=== PATIENT | female | born 1995 | race Caucasian/White ===

== ENCOUNTER 2022-06-30 14:03 | Outpatient (RCR) | payer BC, SELFPAY ==
[2022-06-30 16:24] VITALS: BP 121/84; PULSE 108
== END 2022-08-28 12:45 | disposition home or self-care (01) ==
LOC: ANHOBOP 14:03
PROVIDERS: PCP Advanced Practice Midwife; Visit Provider Obstetrics & Gynecology
DX: O36.8130 Decreased fetal movements, third trimester, not applicable or unspecified (principal); Z3A.35 35 weeks gestation of pregnancy
CPT/HCPCS: 59025

== ENCOUNTER 2022-07-25 00:01 | Inpatient (IN) | payer BC, SELFPAY ==
[2022-07-25] VITALS (102 sets, daily range): BP systolic 83–144; BP diastolic 37–101; PULSE 65–119; RESP 16–18; TEMP 36.1–36.8; O2SAT 95–100; BMI 30.4
--- NOTE | 2022-07-25 00:37 | LDADM ---
This patient, Joni Saleh, was admitted to Labor/Delivery/Recovery 103 on 07/25/22 at 00:01. Plans for labor, pain management and were discussed with patient. Patient/family oriented to hospital policies and general routines including ID bracelet, bed and alarms, visiting hours, pain management, procedures, bathroom and other care routines, personal items, smoking policy, room service/diet and guest tray routines, security routines, and visiting hours. Patient/Family are encouraged to report perceived risks to care and to ask questions if they do not understand what they are told or what they should do. See OBIX for further documentation.
[2022-07-25 00:50] LABS: Basophils Absolute Auto 0.1 K/mm3 (0.0-0.1); Basophils Percent Auto 0.4 % (0.2-1.2); Eosinophils Absolute Auto 0.1 K/mm3 (0-0.3); Eosinophils Percent Auto 0.6 % (0-4.4); Hemoglobin 10.5 g/dL (12.0-15.0); Immature Granulocyte Absolute 0.15 K/mm3 (0.00-0.031); Immature Granulocyte Percent A 1.2 % (0-0.5); Lymphocytes Absolute Auto 2.14 K/mm3 (0.9-3.2); Lymphocytes Percent Auto 17.1 % (18.3-44.2); Mean Corpuscular HGB Conc 30.9 g/dl (32-36); Mean Corpuscular Hemoglobin 25.3 pg (26-34); Mean Corpuscular Volume 81.9 fl (80-100); Mean Platelet Volume 10.7 fl (7.4-10.4); Monocytes Absolute Auto 0.8 K/mm3 (0.1-0.6); Monocytes Percent Auto 6.2 % (2.6-8.5); Neutrophils Absolute Auto 9.3 K/mm3 (1.3-6.7); Neutrophils Percent Auto 74.5 % (45.5-73.1); Platelet Count Result 185 k/mm3 (150-375); Red Blood Count 4.15 M/mm3 (4.2-5.4); Red Cell Distribution Width 14.7 % (11.5-14.5); White Blood Count 12.5 K/mm3 (4.5-10.0)
[2022-07-25] MEDS: LACTATED RINGERS 1,000 ML 125 ML IV CONT ×3 (00:58→08:46)
[2022-07-25] MEDS: OXYTOCIN 30 UNITS/NS 500 ML 30 UNITS/500 ML BAG IV CONT (00:58)
--- NOTE | 2022-07-25 09:08 | WPDANESEPPF ---
Anes - Initial Pre Proc Eval Procedure: labor epidural Date/Time: 07/25/22 09:08 Surgeon: Melissa Foote CNM Pre Op Diagnosis: labor pain Pre Op Diagnosis: IOL Patient Data Age: 27 Gender: F Height: 1.7 m Weight: 88 kg Last Vital Signs Temp 36.1 C L 07/25/22 08:31 Pulse 96 07/25/22 09:00 Resp 16 07/25/22 00:22 BP 110/69 07/25/22 09:00 Pulse Ox 99 07/25/22 09:04 Allergies Allergy/AdvReac Type Severity Reaction Status Date / Time No Known Allergies Allergy Verified 07/25/22 00:57 Laboratory Tests 07/25/22 07/25/22 07/25/22 00:34 00:34 00:34 WBC 12.5 K/mm3 H K/mm3 (4.5-10.0) RBC 4.15 M/mm3 L M/mm3 (4.2-5.4) Hgb 10.5 g/dL L g/dL (12.0-15.0) Hct 34.0 % L % (37.0-47.0) MCV 81.9 fl fl (80-100) MCH 25.3 pg L pg (26-34) MCHC 30.9 g/dl L g/dl (32-36) RDW 14.7 % H % (11.5-14.5) Plt Count 185 k/mm3 k/mm3 (150-375) MPV 10.7 fl H fl (7.4-10.4) Immature Gran % (Auto) 1.2 % H % (0-0.5) Neut % (Auto) 74.5 % H % (45.5-73.1) Lymph % (Auto) 17.1 % L % (18.3-44.2) [place] % (Auto) 6.2 % % (2.6-8.5) Eos % (Auto) 0.6 % % (0-4.4) Baso % (Auto) 0.4 % % (0.2-1.2) Lymph # (Auto) 2.14 K/mm3 K/mm3 (0.9-3.2) [place] # (Auto) 0.8 K/mm3 H K/mm3 (0.1-0.6) Eos # (Auto) 0.1 K/mm3 K/mm3 (0-0.3) Baso # (Auto) 0.1 K/mm3 K/mm3 (0.0-0.1) Abs Immat Gran (auto) 0.15 K/mm3 H K/mm3 (0.00-0.031) Absolute Neuts (auto) 9.3 K/mm3 H K/mm3 (1.3-6.7) Absolute Nucleated RBC 0.0 K/mm3 K/mm3 (0.0-0.012) Nucleated RBC % 0.0 % % (0.0-0.2) RPR Pending Blood Type A Positive Antibody Screen Negative Patient hx anesthesia problems: none Family hx anesthesia problems: none Results Review: All pre-operative results and documents have been reviewed as part of the pre-operative evaluation. [facility] Social History Social History Smoking status: Never smoker Substance use: never Lack of Transportation: No Lack of Food: Never True Current Housing: I Have Housing Concerned About Future Housing: No Difficulty Paying Gas/Electric Bills: No Difficulty Paying for Meds: No Currently Unemployed: No Education: Associate Degree Difficulty w/ Childcare or Family Care: No Spiritual care concerns: No Anes - Eval Final PreProcedure Day of Procedure 07/25/22 09:08 Heart: regular rate and rhythm Lungs: clear to auscultation and normal air movement Airway: Mallampati scale class II Neurological: alert and oriented Results Review: All pre-operative results and documents have been reviewed as part of the pre-operative evaluation. Informed Consent: The patient's anesthetic plan and its attendant risks and benefits were discussed with the patient/family/POA. Questions were solicited and answers provided to the satisfaction of the patient/family/POA.
--- NOTE | 2022-07-25 12:16 | WPDOBADMIT ---
Obstetrics - Admit Note Admission Note: Admit for elective medical induction of labor. record reviewed. No pertinent additions to the history and/or any subsequent changes in the physical findings that are not consistent with the expected course of the were found. Additions to the history and/or subsequent changes in the physical findings follow. None.
--- NOTE | 2022-07-25 12:17 | P.PCNOB_ITS ---
OB - Delivery Note Procedure Delivery date: 07/25/22 Procedure: Induction method: AROM and Per Pitocin Protocol Delivery monitor: External FHT and External Uterine Route of delivery: Episiotomy description: None Laceration Description: None Quantitative Blood Loss (ml): 259 Anesthesia type: Epidural Narrative: Mother and baby in stable condition. Cord gasses collected and handed off to staff. [place] Baby Date of : 07/25/22 Time of : 11:58 Weeks of gestation at delivery: 39 Infant gender: Male Weight (pounds): 9 Weight (ounces): 4 presentation: vertex position: Right Occiput Anterior Placenta delivery description: Spontaneous Cord Vessel Description: 3 Vessels, Nuchal Cord (x2), Loose and Reduced score one minute: 8 score five minutes: 9
--- NOTE | 2022-07-25 12:17 | PM.IMHP ---
H&P: HPI History of Present Illness Date/Time: 07/25/22 12:17 Chief Complaint: Induction of labor Review of Systems Review of Systems: All systems reviewed & are unremarkable except as noted in HPI and below Constitutional: Constitutional: Reports as per HPI and Reports no additional constitutional complaints Eyes: Eyes: Reports as per HPI ENT: Reports system reviewed and no additional complaints, except as documented Cardiovascular: Cardiovascular: Reports as per HPI Respiratory: Respiratory: Reports as per HPI Gastrointestinal: Gastrointestinal: Reports as per HPI Genitourinary: Genitourinary: Reports no additional female genitourinary complaints Musculoskeletal: Musculoskeletal: Reports no additional musculoskeletal complaints Integumentary/Breasts: Skin/Breast: Reports system reviewed and no additional complaints, except as docu Neurologic: Reports system reviewed and no additional complaints, except as documented Psychiatric: Psychiatric: Reports no additional psychiatric complaints Endocrine: Endocrine: Reports no additional endocrine complaints Hematologic/Lymphatic: Hematologic/Lymphatic: Reports no additional hematologic/lymphatic complaints Allergic/Immunologic: Allergic/Immunologic: Reports no additional allergic/immunologic complaints [facility] Social History Social History Smoking status: Never smoker Substance use: never Lack of Transportation: No Lack of Food: Never True Current Housing: I Have Housing Concerned About Future Housing: No Difficulty Paying Gas/Electric Bills: No Difficulty Paying for Meds: No Currently Unemployed: No Education: Associate Degree Difficulty w/ Childcare or Family Care: No Spiritual care concerns: No Meds Home Medications and Allergies Allergies Allergy/AdvReac Type Severity Reaction Status Date / Time No Known Allergies Allergy Verified 07/25/22 00:57 Vital Signs Vital Signs - 24 hr 07/25/22 00:22 07/25/22 01:00 07/25/22 01:15 Temperature 97.6 F Pulse Rate 100 87 97 Respiratory Rate 16 Blood Pressure 128/83 123/71 106/68 Pulse Oximetry 07/25/22 01:30 07/25/22 01:45 07/25/22 02:00 Temperature Pulse Rate 92 92 96 Respiratory Rate Blood Pressure 114/75 104/58 L 105/57 L Pulse Oximetry 07/25/22 06:00 07/25/22 06:30 07/25/22 06:05 Temperature 97.1 F L Pulse Rate 98 88 Respiratory Rate Blood Pressure 104/56 L 123/74 Pulse Oximetry 07/25/22 06:45 07/25/22 07:00 07/25/22 07:15 Temperature Pulse Rate 85 97 93 Respiratory Rate Blood Pressure 130/76 123/81 125/75 Pulse Oximetry 07/25/22 07:41 07/25/22 07:44 07/25/22 07:45 Temperature Pulse Rate 88 101 H Respiratory Rate Blood Pressure 125/69 121/67 Pulse Oximetry 98 07/25/22 07:46 07/25/22 07:49 07/25/22 07:51 Temperature Pulse Rate 99 87 Respiratory Rate Blood Pressure 129/81 122/64 Pulse Oximetry 98 07/25/22 07:52 07/25/22 07:54 07/25/22 07:56 Temperature Pulse Rate 96 99 Respiratory Rate Blood Pressure 133/86 120/99 H Pulse Oximetry 97 07/25/22 07:58 07/25/22 07:59 07/25/22 08:00 Temperature Pulse Rate 65 79 Respiratory Rate Blood Pressure 83/38 L 95/47 L Pulse Oximetry 97 07/25/22 08:01 07/25/22 08:02 07/25/22 08:04 Temperature Pulse Rate 76 85 Respiratory Rate Blood Pressure 87/37 L 102/41 L Pulse Oximetry 97 07/25/22 08:05 07/25/22 08:07 07/25/22 08:09 Temperature Pulse Rate 88 91 Respiratory Rate Blood Pressure 110/57 L 111/63 Pulse Oximetry 98 07/25/22 08:10 07/25/22 08:13 07/25/22 08:14 Temperature Pulse Rate 97 86 Respiratory Rate Blood Pressure 109/52 L 108/68 Pulse Oximetry 97 07/25/22 08:15 07/25/22 08:17 07/25/22 08:19 Temperature Pulse Rate 95 85 Respiratory Rate Blood Pressure 105/92 H 110/62 Pulse Oximetry 98 07/25/22 08:20 07/25/22 08:23 07/25/22 08:
[2022-07-25] MEDS: OXYTOCIN 30 UNITS/NS 500 ML 30 UNITS/500 ML BAG 125 UNITS IV CONT (12:37)
[2022-07-25] MEDS: WITCH HAZEL 40 PADS 1 PAD TOPICAL (14:22)
--- NOTE | 2022-07-25 15:48 | OBPPTRN ---
1504 Patient transferred to post room #288 via W/C. Support person present. Oriented to unit, room, information board, rooming in, admission packet and security measures. Patient verbalizes understanding.
[2022-07-25] MEDS: IBUPROFEN 600 MG TABLET PO (22:00)
[2022-07-26] VITALS: BP 112/63; PULSE 85; RESP 18; TEMP 37.5; O2SAT 98
[2022-07-26 04:00] VITALS: BP 111/73; PULSE 92; RESP 18; TEMP 36.6; O2SAT 99
[2022-07-26 05:31] LABS: Hematocrit 29.9 % (37.0-47.0); Hemoglobin 9.3 g/dL (12.0-15.0)
--- NOTE | 2022-07-26 08:01 | WPDANLDPN2 ---
Anes-Prog Note L&D Date/Time: 07/26/22 08:01 Comfortable throughout: labor Neuraxial method: epidural Epidural/Spinal procedure site: clean & non-tender Neuro status: Neuro function grossly intact. Cardiovascular status: normal Respiratory status: normal Airway patency: baseline Mental status: baseline Vital Signs: Last Vital Signs Temp 36.6 C 07/26/22 04:00 Pulse 92 07/26/22 04:00 Resp 18 07/26/22 04:00 BP 111/73 07/26/22 04:00 Pulse Ox 99 07/26/22 04:00 O2 Del Method Room Air 07/25/22 15:20 Pain score (VAS): <3 I/O: Intake & Output 07/25/22 07/26/22 07/26/22 23:59 07:59 15:59 Intake Total 240 Balance 240 Patient feedback: Patient satisfied with anesthetic care.
[2022-07-26] MEDS: IBUPROFEN 600 MG TABLET PO ×2 (08:18→14:19)
[2022-07-26] MEDS: MULTIVIT/MIN/PREN/FOL AC/IRON TABLET 1 TAB PO (08:18)
[2022-07-26] MEDS: LANOLIN (LANSINOH) 7.5 GM CREAM 1 APPLIC TOPICAL (08:19)
[2022-07-26] MEDS: POLYSACCHARIDE IRON COMPLEX 150 MG CAPSULE PO ×2 (08:19→17:18)
[2022-07-26] MEDS: DOCUSATE SODIUM 100 MG CAPSULE PO ×2 (08:19→17:19)
[2022-07-26] MEDS: BENZOCAINE 20% AER SPR (*SP) 56 GM CAN 1 SPRAY TOPICAL (08:20)
[2022-07-26] MEDS: WITCH HAZEL 40 PADS 1 PAD TOPICAL (08:20)
--- NOTE | 2022-07-26 09:03 | PM.OBPNVD ---
OB - PN: Subj Subjective Date/time seen: 07/26/22 09:03 Patient comments: no complaints baby status: doing well OB - PN: Obj Data Labs 07/26/22 05:21 Labs: Laboratory Results - last 24 hr 07/26/22 05:21 Hgb 9.3 L Hct 29.9 L OB - PN A/P Plan day: 1 Plan: routine care Time Spent With Patient Time: Total time spent is greater than 50% in coordination of care (as documented) at patient's floor/unit and/or counseling patient: Time with patient: less than 15 minutes Review of Systems Review of Systems: All systems reviewed & are unremarkable except as noted in HPI and below Exam Narrative: Fundus firm and vaginal flow controlled. No lower ext redness, warmth, or edema. Negative homans. Const: General: comfortable Chest: Breast/axilla inspection: normal inspection of the breasts Resp: Effort & Inspection: normal respiratory effort Cardio: Rate: regular rate GI: GI Palp: Yes Soft to palpation Psych: Appearance: grossly normal Affect: normal affect Attitude: cooperative Thought content: Yes Normal thought content present Judgement: Good judgement present (Psych)
[2022-07-26 10:20] VITALS: BP 134/77; PULSE 95; RESP 16; TEMP 36.9; O2SAT 96
[2022-07-26] MEDS: ACETAMINOPHEN 325 MG TABLET 650 MG PO (12:16)
[2022-07-26 14:30] VITALS: BP 122/77; PULSE 90; RESP 18; TEMP 37; O2SAT 99
[2022-07-26 19:58] VITALS: BP 122/83; PULSE 87; RESP 18; TEMP 36.4; O2SAT 97
[2022-07-26] MEDS: SERTRALINE HCL 50 MG TABLET PO (20:52)
--- NOTE | 2022-07-27 06:28 | PM.OBDSVD ---
DS: Admitting Diagnosis Discharge Date 07/27/22 Admitting Diagnosis term OB - DS: Summary OB Procedures : None OB Procedures Intrapartum: Spontaneous Vag Delivery OB Procedures: : None Time Spent with Patient Time attestation: Total time spent providing and/or coordinating discharge services: Discharge Plan Discharge Discharging Clinician: Mary Wick Patient Disposition: Home, Self-Care Activity: pelvic rest Diet: regular Patient Instructions: Antibiotic Form Stand Alone Forms: General Discharge Information Follow-up/Referrals: Mary Wick MD [Physician] - Date of admission: 07/25/22 00:01 Primary Care Provider: UNKNOWN,DOCTOR Admitting Provider: Mary Wick Attending physician on admission: Mary Wick Condition: Stable
--- NOTE | 2022-07-27 06:32 | PM.OBPNVD ---
OB - PN: Subj Subjective Date/time seen: 07/27/22 06:32 Patient comments: no complaints, pain well controlled and tolerating diet OB - PN: Obj Data Labs 07/26/22 05:21 OB - PN A/P Plan day: 2 Plan: routine care and discharge home Time Spent With Patient Time: Total time spent is greater than 50% in coordination of care (as documented) at patient's floor/unit and/or counseling patient: Exam Const: General: comfortable and no acute distress Resp: Effort & Inspection: normal respiratory effort Auscultation: no rales, no rhonchi and no wheezes Cardio: Rate: regular rate Heart sounds: no click, no murmurs and no rubs GI: GI Palp: Yes Soft to palpation and No Tenderness to palpation present (GI) Auscultation: normal bowel sounds Extrem: General: normal to inspection, no pedal edema and no calf tenderness
[2022-07-27 08:05] LABS: Rapid Plasma Reagin Non-Reactive (NonReactive)
[2022-07-27 08:20] VITALS: BP 119/70; PULSE 92; RESP 18; TEMP 36.6; O2SAT 99
[2022-07-27] MEDS: POLYSACCHARIDE IRON COMPLEX 150 MG CAPSULE PO ×2 (10:43→15:53)
[2022-07-27] MEDS: MULTIVIT/MIN/PREN/FOL AC/IRON TABLET 1 TAB PO (10:43)
[2022-07-27] MEDS: IBUPROFEN 600 MG TABLET PO ×2 (10:45→18:39)
[2022-07-27] MEDS: DOCUSATE SODIUM 100 MG CAPSULE PO (15:53)
[2022-07-27] MEDS: SERTRALINE HCL 50 MG TABLET PO (21:10)
[2022-07-27 21:15] VITALS: BP 124/80; PULSE 90; RESP 18; TEMP 36.6; O2SAT 99
[2022-07-28] MEDS: IBUPROFEN 600 MG TABLET PO (07:38)
[2022-07-28] MEDS: MULTIVIT/MIN/PREN/FOL AC/IRON TABLET 1 TAB PO (07:39)
[2022-07-28] MEDS: POLYSACCHARIDE IRON COMPLEX 150 MG CAPSULE PO (07:39)
[2022-07-28] MEDS: DOCUSATE SODIUM 100 MG CAPSULE PO (07:39)
--- NOTE | 2022-07-28 07:53 | PM.OBPNVD ---
OB - PN: Subj Subjective Date/time seen: 07/28/22 07:53 Patient comments: no complaints baby status: doing well OB - PN: Obj Data Labs 07/26/22 05:21 Labs: Laboratory Results - last 24 hr 07/25/22 00:34 RPR Non-reactive OB - PN A/P Plan day: 2 Plan: routine care and discharge home (F/U in 4 weeks) Comments: PT WAS SUPPOSED TO BE DISCHARGED LAST NIGHT BUT WAS NOT. Time Spent With Patient Time: Total time spent is greater than 50% in coordination of care (as documented) at patient's floor/unit and/or counseling patient: Time with patient: less than 15 minutes Review of Systems Review of Systems: All systems reviewed & are unremarkable except as noted in HPI and below Exam Narrative: Fundus firm and vaginal flow controlled. No lower ext redness, warmth, or edema. Negative homans. Const: General: comfortable Chest: Breast/axilla inspection: normal inspection of the breasts Resp: Effort & Inspection: normal respiratory effort Cardio: Rate: regular rate GI: GI Palp: Yes Soft to palpation Psych: Appearance: grossly normal Affect: normal affect Attitude: cooperative Thought content: Yes Normal thought content present Judgement: Good judgement present (Psych)
[2022-07-28 08:35] VITALS: BP 125/86; PULSE 84; RESP 18; TEMP 37.1; O2SAT 99
--- NOTE | 2022-07-28 13:20 | PC.NURSE ---
[id number] Introductions were made, then consulted with patient to assess needs related to . Mother led the conversation with her experience feeding her so far. Mother works well with her . Encouraged understanding of the benefits of skin to skin (unwrapping and placing vertically on her chest), stimulating to wake to breastfeed, changing positioning, how to watch for early feeding signs, responsive feeding, frequency of feeding on demand aiming for 8-12 times in 24 hours (every 2-3 hours), milk production, duration of feeding, signs of adequate intake/output and how to record on the feeding sheet. Reviewed positioning and ear, shoulder, hip alignment, supporting the breast, asymmetrical latch (off-center), and leading with the chin with a big open side gape. Infant latched optimally to the right breast in cross cradle position. Education given to mother of how to visualize suck/swallow ratios and drinking at the breast. was able to maintain latch without discomfort to mother for a few minutes, then would fall off . Discussed with the parents that it is possible that the tongue which does forking with extension and appears heart shaped might be restricting. Encouraged parents to discuss with their ICP. Mother states she has been pumping, supplementing with formula bottles and using a pacifier. There was a discussion about the risks and benefits of each decision. Mother states when her slides off the breast she works with her to latch again. Nipple care reviewed with optimal latch and good positioning. Reminding mother of comfort measures of healing with a warm and wet washcloth to rinse breast, then leave open to air-dry as needed. Reviewed good handwashing when or touching the breast/nipples to prevent infection. Resources used to facilitate learning were used with the tool, mom and baby guide. Mother voiced understanding of responsive feedings, stimulating with skin to skin, hand expressed colostrum, massage touch, talking to to encourage if it has been 2 -3 hours since the start of the last , to call if infant does not latch or there is discomfort with . Reported to the primary RN.
--- NOTE | 2022-07-28 17:23 | PC.NURSE ---
[id number] Patient was given the opportunity to view the discharge video Mother & Baby Care, The First Two Weeks and to ask questions. Patient declined viewing the video and has been given the mother/baby guide for home reference. States she will view this at home.
[2022-07-29 08:46] VITALS: BP 120/77; PULSE 97; RESP 20; TEMP 37.4; O2SAT 100
--- NOTE | 2022-08-27 08:18 | PM.OBDSVD ---
DS: Admitting Diagnosis Discharge Date 07/28/22 Admitting Diagnosis Induction of labor OB - DS: Summary OB Procedures : None OB Procedures Intrapartum: Spontaneous Vag Delivery OB Procedures: : None Peripartum Data Delivery Method: Natural Vaginal Laceration Description: None complications: none Status at Discharge Functional status at discharge: independent ambulation Time Spent with Patient Time attestation: Total time spent providing and/or coordinating discharge services: Exam Narrative: Fundus firm and vaginal flow controlled. No lower ext redness, warmth, or edema. Negative homans. Denies h/a, v/d or e/p. Reflexes normal. Const: General: comfortable Chest: Breast/axilla inspection: normal inspection of the breasts Resp: Effort & Inspection: normal respiratory effort Cardio: Rate: regular rate GI: GI Palp: Yes Soft to palpation Psych: Appearance: grossly normal Affect: normal affect Attitude: cooperative Thought content: Yes Normal thought content present Judgement: Good judgement present (Psych) Discharge Plan Discharge Consulting providers: Kristi Perea ; Herb Lomax ; Jana Das Discharging Clinician: Mary Wick Patient Disposition: Home, Self-Care Activity: pelvic rest Diet: regular Discharge Instructions: Education: Mom and Baby Guide Given to: Mother Follow-Up: Call your delivering provider's office for an appointment to be seen in: 6 weeks Mom and baby should come to the [facility] for the follow-up appointment. Appointment Date/Time: 07/29/2022 at 9:00 am What to expect at your follow-up visit: Physical Assessment Call [phone] if you are unable to keep your appointment time. BREAST CARE: * Wear a snug supportive bra. * For engorgement discomfort: Breast Feeding: * Apply warm moist washcloths * Express milk as needed to relieve engorgement * Wear loose clothing * For sore nipples: * Identify correct latch-on * Apply warm moist washcloths before and after nursing * Air dry nipples after nursing * May apply Lansinoh cream to nipples PERINEAL CARE: * Until bleeding stops, use your ulises bottle after urinating * Change your pad frequently throughout the day * You may take sitz baths several times a day (fill your bathtub with warm water and soak for 20 minutes.) Do NOT bathe in the water * No tub baths until seen by your physician - You may shower ACTIVITY: * Rest as much as possible. * Do not exercise or lift anything heavier than your baby (such as laundry or other children.) * Avoid stairs or driving as much as possible. * Do not put anything into the vagina. No douching, tampons, or sexual activity until seen by physician. NOTIFY PHYSICIAN IF YOU HAVE ANY QUESTIONS OR IF ANY OF THE FOLLOWING SYMPTOMS OCCUR: * If your episiotomy or incision becomes red, swollen, or more painful than what you have experienced in the hospital. * If your vaginal bleeding becomes foul smelling. * If your vaginal bleeding becomes more heavy than a period or if your bleeding changes from pink to bright red. However, you may pass an occasional walnut-sized clot once or twice for the first week . * If you experience a sharp, shooting pain in you calves. * If you discover a hard, reddened area on your breast or if you experience flu-like symptoms. DIET: * Eat regular, well-balanced meals. * Drink plenty of fluids daily. If , drink to thirst. Follow-up/Referrals: Mary Wick MD [Physician] - Date of admission: 07/25/22 00:01 Primary Care Provider: UNKNOWN,DOCTOR Admitting Provider: Mary Wick Attending physician on admission: Mary Wick Condition: Stable
== END 2022-07-28 13:35 | disposition home or self-care (01) | DRG 807 ==
LOC: ANHLDR 10:19 → ANHOB2 15:33
PROVIDERS: Advanced Practice Midwife; Admitting Provider Obstetrics & Gynecology; Visit Provider Obstetrics & Gynecology
DX: O69.81X0 Labor and delivery complicated by cord around neck, without compression, not applicable or unspecified (principal); Z37.0 Single live birth; Z3A.39 39 weeks gestation of pregnancy
CPT/HCPCS: 36415; 85014; 85018; 85025; 86592; 86850; 86900; 86901; A9270; J2590; J2795; J7120

== ENCOUNTER 2024-12-05 08:08 | Inpatient (IN) | payer BC, SELFPAY ==
[2024-12-05] VITALS (36 sets, daily range): BP systolic 99–130; BP diastolic 55–99; PULSE 71–114; RESP 16; TEMP 36.2–37.2; O2SAT 94–100; BMI 31.4
--- OUTSIDE RECORDS SUMMARY | 2024-12-05 08:15 | XMS_ITS | Clinical Summary ---
Author Organization [facility] Address [address] [place] [address] Care Team Providers Care Deicer Tester Name Role Phone Marielos Meadecornelia SEGURA Primary Care Provider [phone] Allergies No known active allergies Medications PNV 16-iron fum,[id number] 35-1-200 mg capsule Take by mouth daily. Active NuvaRing 0.12-0.015 mg/24 hr vaginal ring 10/09/19 20 Active ofloxacin (OCUFLOX) 0.3 % ophthalmic solutionIndication s:Acute bacterial conjunctivitis of right eye Days 1-2 instill 2 drops to affected eye every 2-4 hours, then days 3-7 instill 1 drop to affected eye four times a day. 10 mL 03/25/20 23 Active Additional Information Patient not taking.Reported on 09/03/2024 sertraline (ZOLOFT) 100 mg tablet Take 1 tablet (100 mg total) by mouth daily 08/29/19 25 Active Active Problems Problem Noted Date Diagnosed Date Healthcare maintenance 01/29/2017 Immunizations Immunization Administration Dates Next Due PPD TEST 03/13/2023 Family History Medical History Relation Name Comments Hypertension Father Diabetes Sister Relation Name Status Comments Father Sister Social History Tobacco Use Types Packs/Day Years Used Date Smoking Tobacco: Never Tobacco Cessation:Counseling Given: No Alcohol Use Standard Drinks/Week Comments No 0 (1 standard drink = 0.6 oz pur e alcohol) Comments No Sex and Gender Information Value Date Recorded Sex Assigned at Not on file Legal Sex Female 8:39 AM CDT Gender Identity Female 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/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 Sexual Orientation Not on file Obstetrics History Last Filed Vital Signs Vital Sign Reading Time Taken Comments Blood Pressure 128/70 09/03/2024 4:11 PM BANK WORKER Pulse 98 09/03/2024 4:11 PM BANK WORKER Temperature 36.8 C (98.2 F) 09/03/2024 4:11 PM BANK WORKER Respiratory Rate 18 09/03/2024 4:11 PM BANK WORKER Oxygen Saturation 99% 09/03/2024 4:11 PM BANK WORKER Inhaled Oxygen Concentration - - Weight 86.2 kg (190 lb) 09/03/2024 4:11 PM BANK WORKER Height 170.2 cm (5' 7 ) 09/03/2024 4:11 PM BANK WORKER Body Mass Index 29.76 09/03/2024 4:11 PM BANK WORKER Plan of Treatment Health Maintenance Due Date Last Done Comments Cervical Cancer Screening 1995 Depression Screening 1995 Hepatitis C Screening 1995 Regular Well Visit/Exam 18-64 01/29/2018 01/29/2017 Influenza Vaccine (#1) 2024 10/11/2019 DTaP/Tdap/Td Vaccine (6 - Td or Tdap) 03/13/2025 03/13/2015, 02/19/2001, 08/26/1996, Additional history exists Hepatitis B Screening Completed 1995 , 1995, 1995 Varicella Vaccines Completed 03/16/2016, 08/26/1996 HPV Vaccines Aged Out No longer eligi ble based on patient's age to complete this topic Pneumococcal vaccine <65 Aged Out No longer eligible based on patient's age to complete this topic Insurance [employer] OOS Care Teams Deicer Tester Relationship Specialty Start Date End Date Marielos Meade NP PCP - General Nurse Practitioner 03/13/23
--- OUTSIDE RECORDS SUMMARY | 2024-12-05 08:15 | XMS_ITS | Referral Summary ---
[facility] Organization [facility] Address [address] [place] [address] Care Team Providers Care Boatswains Mate Name Role Phone Rajan Meaderamakrishna Ramires NP Primary Care Provider [phone] Allergies No known active allergies Medications PNV 16-iron fum,[id number] 35-1-200 mg capsule Take by mouth daily. 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 Sexual Orientation Not on file Last Filed Vital Signs Vital Sign Reading Time Taken Comments Blood Pressure 128/70 09/03/2024 4:11 PM PIG MACHINE OPERATOR Pulse 98 09/03/2024 4:11 PM PIG MACHINE OPERATOR Temperature 36.8 C (98.2 F) 09/03/2024 4:11 PM PIG MACHINE OPERATOR Respiratory Rate 18 09/03/2024 4:11 PM PIG MACHINE OPERATOR Oxygen Saturation 99% 09/03/2024 4:11 PM PIG MACHINE OPERATOR Inhaled Oxygen Concentration - - Weight 86.2 kg (190 lb) 09/03/2024 4:11 PM PIG MACHINE OPERATOR Height 170.2 cm (5' 7 ) 09/03/2024 4:11 PM PIG MACHINE OPERATOR Body Mass Index 29.76 09/03/2024 4:11 PM PIG MACHINE OPERATOR Plan of Treatment Not on file Insurance [employer] O[employer] Care Teams Boatswains Mate Relationship Specialty Start Date End Date Marielos Meade NP PCP - General Nurse Practitioner 03/13/23
--- OUTSIDE RECORDS SUMMARY | 2024-12-05 08:15 | XMS_ITS | Encounter Summary ---
Author Organization [facility] Address [address] [place] [address] Care Team Providers Care Truck Driver Instructor Name Role Phone Unavailable Primary Care Provider Unavailabl e Encounter Details Date Type Department Care Team (Late st Contact Info) Description 11/16/2023 Lab Requisition [facility] - DermPath Lab [address] [place] [address] Andrzej De Anda MD [facility] [id number] Social History Tobacco Use Types Packs/Day Years Used Date Smoking Tobacco: Never Assessed Comments Unknown Sex and Gender Information Value Date Recorded Sex Assigned at Not on file Legal Sex Female 9:45 AM CDT Gender Identity Not on file Sexual Orientation Not on file documented as of this encounter Plan of Treatment Not on file documented as of this encounter Procedures Procedure Name Priority Date/Time Associated Diagnosis Comments DERMATOPATHOLOGY Routine 11/11/2023 3:33 AM CDT documented in this encounter Results * DERMATOPATHOLOGY (11/11/2023 3:33 AM CDT) Case Report Dermatopathology Report Case: [id number] Authorizing Provider: Andrzej De Anda MD Collected: 11/11/2023 03:33 AM Ordering Location: [facility] - Received: 11/16/2023 09:56 AM DermPath Lab Pathologist: Nancy Platt MD Specimen: Skin, left medial chest 1:32 PM CDT DERMATOPATHOLOGY LABORATORY Final Diagnosis Specimen A. SKIN, left medial chest: COMPOUND MELANOCYTIC NEVUS, IRRITATED (D22.5) NOT PRESENT AT SAMPLED MARGIN 1:32 PM CDT DERMATOPATHOLOGY LABORATORY Clinical History R/o Atypical Nevus r/o Melanoma. Check margins. 1:32 PM CDT DERMATOPATHOLOGY LABORATORY Gross Description Specimen A: Received is one formalin filled container labeled with the patient's name and designated left medial chest. The specimen consists of a shave biopsy measuring 6x8x1 mm. Jar 0. 1:32 PM T DERMATOPATHOLOGY LABORATORY Microscopic Description Specimen A. SKIN, left medial chest: There is melanin pigment in the stratum corneum. There are nests of melanocytes at the dermal-epidermal junction and within the dermis. This lesion is not present at the sampled margin of the specimen. 1:32 PM T DERMATOPATHOLOGY LABORATORY Disclaimer An external and internal positive and negative controls are appropriate for the histochemical, immunohistochemical and immunofluorescence stain(s) in this case (if any), except where stated explicitly. The performance characteristics of the stain(s) cited in this report were developed and its performance characteristic determined by the Dermatopathology Laboratory at [facility], directed by Dr. Chinmay [facility]. These tests need not be, and therefore are not, approved by the [place] Food and Drug Administration. The tests are used for clinical purposes. Billing Codes Specimen Charges Stain Charges 42238 1 1:32 PM CDT DERMATOPATHOLOGY LABORATORY Embedded Images 1:32 PM CDT DERMATOPATHOLOGY LABORATORY Pathology/Cytolo gy TISSUE SPECIMEN FROM SKIN / Unknown 11/11/2023 3:33 AM CDT 11/16/2023 9:56 AM CDT us Andrzej De Anda MD LAB - PATHOLOGY/CYTOLOGY ORDERAB LES Final Result DERMATOPATHOLOGY LABORATORY [facility] - Department of Dermatology [address] [place] [address], [facility] [phone] documented in this encounter Visit Diagnoses Not on filedocumented in this encounter
--- OUTSIDE RECORDS SUMMARY | 2024-12-05 08:15 | XMS_ITS | Clinical Summary ---
Author Organization [facility] Address [address] [place] [address] Care Team Providers Care Packaging Materials Inspector Name Role Phone Unavailable Primary Care Provider Unavailabl e Source Comments [facility],non-owned Affiliates and Associated Physician Practices is amultiple site organization consisting of ambulatory clinics and hospital sitesin [place], [place], [place] and [place]. This disclosure is being madepursuant to the Care Everywhere program and may not contain all information available regarding this patient. Last updated 18.[facility] Social History Tobacco Use Types Packs/Day Years Used Date Smoking Tobacco: Never Assessed Comments Unknown Sex and Gender Information Value Date Recorded Sex Assigned at Not on file Legal Sex Female 9:45 AM CDT Gender Identity Not on file Sexual Orientation Not on file Plan of Treatment Health Maintenance Due Date Last Done Comments PAP SMEAR 1995 HIV SCREENING 2010 HEPATITIS C SCREENING 04/23/2013 DTAP/TDAP/TD VACCINES (1 - Tdap) 2014 HEPATITIS B VACCINE (1 of 3 - 19+ 3-dose series) 2014 COVID-19 VACCINE (1 - 2023-2 5 season) 2024 DEPRESSION SCREENING 07/26/2024 INFLUENZA VACCINE (Season Ended) 2025 ZOSTER VACCINE (1 of 2) 2045 HIB VACCINE Aged Out No longer eligi ble based on patient's age to complete this topic HPV VACCINE Aged Out No longer eligi ble based on patient's age to complete this topic MENINGOCOCCAL (Group B) VACC INE SHARED DECISION-MAKING Aged Out No longer eligibl e based on patient's age to complete this topic MENINGOCOCCAL GROUPS A/C/Y/W VACCINE Aged Out No longer eligible b ased on patient's age to complete this topic PNEUMOCOCCAL VACCINE Aged Out No long er eligible based on patient's age to complete this topic Insurance [employer]
[2024-12-05] MEDS: LACTATED RINGERS 1,000 ML 125 ML IV CONT ×2 (08:30→09:17)
[2024-12-05 08:42] LABS: Basophils Percent Auto 0.4 % (0.2-1.2); Eosinophils Percent Auto 0.4 % (0-4.4); Hematocrit 34.1 % (37.0-47.0); Hemoglobin 10.1 g/dL (12.0-15.0); Immature Granulocyte Absolute 0.09 K/mm3 (0.00-0.031); Immature Granulocyte Percent A 0.8 % (0-0.5); Lymphocytes Absolute Auto 1.34 K/mm3 (0.9-3.2); Lymphocytes Percent Auto 12.3 % (18.3-44.2); Mean Corpuscular HGB Conc 29.6 g/dl (32-36); Mean Corpuscular Hemoglobin 23.4 pg (26-34); Mean Corpuscular Volume 79.1 fl (80-100); Mean Platelet Volume 9.6 fl (7.4-10.4); Monocytes Absolute Auto 0.7 K/mm3 (0.1-0.6); Neutrophils Absolute Auto 8.7 K/mm3 (1.3-6.7); Neutrophils Percent Auto 80.1 % (45.5-73.1); Platelet Count Result 158 k/mm3 (150-375); Red Blood Count 4.31 M/mm3 (4.2-5.4); Red Cell Distribution Width 15.4 % (11.5-14.5); White Blood Count 10.9 K/mm3 (4.5-10.0)
--- NOTE | 2024-12-05 08:42 | LDADM ---
This patient, Joni Saleh, was admitted to Labor/Delivery/Recovery 108 on 12/05/24 at 08:08. Plans for labor, pain management and were discussed with patient. Patient/family oriented to hospital policies and general routines including ID bracelet, bed and alarms, visiting hours, pain management, procedures, bathroom and other care routines, personal items, smoking policy, room service/diet and guest tray routines, security routines, and visiting hours. Patient/Family are encouraged to report perceived risks to care and to ask questions if they do not understand what they are told or what they should do. See OBIX for further documentation.
[2024-12-05 08:59] LABS: Hypochromasia 1+; Platelet Estimate Adequate (Adequate); Schistocytes None Seen
[2024-12-05 09:38] LABS: Syphilis IgG/IgM Antibody Negative (Negative)
--- NOTE | 2024-12-05 09:57 | P.PCNOB_ITS ---
OB - Vaginal Delivery Note Procedure Delivery date: 12/05/24 Delivery monitor: External FHT and External Uterine Episiotomy description: None Laceration Description: None Specimen: No Quantitative Blood Loss (ml): 100 Anesthesia type: Epidural Disposition: Floor Complications: No immediate complications [place] Baby Date of : 12/05/24 Time of : 09:46 Gestational Age by Date: 39 Infant gender: Female Weight (pounds): 7 Weight (ounces): 13 presentation: vertex position: Right Occiput Anterior Placenta delivery description: Spontaneous Cord Vessel Description: 3 Vessels, Clamped/Cut and Delayed Cord Clamping score one minute: 8 score five minutes: 9
--- NOTE | 2024-12-05 09:57 | WPDOBADMIT ---
Obstetrics - Admit Note Admission Note: record reviewed. No pertinent additions to the history and/or any subsequent changes in the physical findings that are not consistent with the expected course of the were found. Additions to the history and/or subsequent changes in the physical findings follow. None. admit in labor
[2024-12-05] MEDS: OXYTOCIN 30 UNITS/NS 500 ML 30 UNITS/500 ML BAG 125 UNITS IV CONT (10:17)
[2024-12-05] MEDS: OXYTOCIN 30 UNITS/NS 500 ML 30 UNITS/500 ML BAG 999 UNITS IV CONT (10:18)
[2024-12-05] MEDS: BENZOCAINE 20% AER SPR (*SP) 56 GM CAN 1 SPRAY TOPICAL (12:10)
[2024-12-05] MEDS: WITCH HAZEL 40 PADS 1 PAD TOPICAL (12:10)
[2024-12-05 12:46] LABS: HIV 1/2 Ab P24 Ag Result Negative (Negative)
--- NOTE | 2024-12-05 14:38 | OBPPTRN ---
Patient and baby transferred to post room #282 via (wheelchair). Support person present. Oriented to unit, room, information board, rooming in, admission packet and security measures. Patient verbalizes understanding.
--- NOTE | 2024-12-05 14:40 | PC.NURSE ---
Introductions were made, then consulted with patient to assess needs related to . Discussed with mother her plans to feed her and the experience so far. She breastfed her other children and feels like the first 2 feedings have gone well. Resources provided for inpatient and outpatient services with the feeding sheet, mom/baby guide and name written on the communication board. Mother voiced understanding of information and will call if there is a request for assistance. Reported to the Primary RN.
[2024-12-05] MEDS: IBUPROFEN 600 MG TABLET PO (17:06)
[2024-12-05] MEDS: DOCUSATE SODIUM 100 MG CAPSULE PO (17:06)
[2024-12-05] MEDS: SERTRALINE HCL 50 MG TABLET PO (20:15)
[2024-12-06] MEDS: IBUPROFEN 600 MG TABLET PO (01:50)
[2024-12-06 04:15] VITALS: BP 110/78; PULSE 69; RESP 16; TEMP 37; O2SAT 100
[2024-12-06 04:32] LABS: Hematocrit 31.9 % (37.0-47.0); Hemoglobin 9.2 g/dL (12.0-15.0)
--- NOTE | 2024-12-06 07:50 | P.PNOB_ITS ---
OB - PN: Subj Subjective Date/time seen: 12/06/24 07:50 Interval history: pp day 1 doing well would like d/c home OB - PN: Obj Data Labs 12/06/24 03:53 Labs: Laboratory Results - last 24 hr 12/05/24 12/06/24 08:34 03:53 WBC 10.9 H RBC 4.31 Hgb 10.1 L 9.2 L Hct 34.1 L 31.9 L MCV 79.1 L MCH 23.4 L MCHC 29.6 L RDW 15.4 H Plt Count 158 MPV 9.6 Immature Gran % (Auto) 0.8 H Neut % (Auto) 80.1 H Lymph % (Auto) 12.3 L [place] % (Auto) 6.0 Eos % (Auto) 0.4 Baso % (Auto) 0.4 Lymph # (Auto) 1.34 [place] # (Auto) 0.7 H Eos # (Auto) 0.0 Baso # (Auto) 0.0 Abs Immat Gran (auto) 0.09 H Absolute Neuts (auto) 8.7 H Absolute Nucleated RBC 0.000 Band Neutrophils % Not Reportable Nucleated RBC % 0.0 Platelet Estimate Adequate Hypochromasia 1+ Schistocytes None seen Syphilis IgG/IgM Ab Negative HIV 1&2 Ab/P24 Ag 4thGn Negative Blood Type A Positive Antibody Screen Negative OB - PN A/P Plan day: 1 Plan: routine care and discharge home Time Spent With Patient Time: Total time spent is greater than 50% in coordination of care (as documented) at patient's floor/unit and/or counseling patient: Review of Systems 2 Review of Systems: All systems reviewed & are unremarkable except as noted in HPI and below Exam 2 Const: General: cooperative, healthy appearing and comfortable Resp: Effort & Inspection: normal respiratory effort Cardio: Rate: regular rate
--- NOTE | 2024-12-06 07:52 | P.DS_ITS ---
DS: Admitting Diagnosis Discharge Date 12/06/24 Admitting Diagnosis labor DS: Discharge Diagnosis Discharge Diagnosis (1) Vaginal delivery: Code(s): O80 - Encounter for full-term uncomplicated delivery Status: Acute OB - DS: Summary OB Procedures : None OB Procedures Intrapartum: Spontaneous Vag Delivery OB Procedures: : None Peripartum Data Laceration Description: None Episiotomy description: None Time Spent with Patient Time attestation: Total time spent providing and/or coordinating discharge services: DS: Data Data Completed and Pending Labs on day of discharge: Labs from last 24 hours 12/06/24 12/05/24 03:53 08:34 WBC 10.9 H RBC 4.31 Hgb 9.2 L 10.1 L Hct 31.9 L 34.1 L MCV 79.1 L MCH 23.4 L MCHC 29.6 L RDW 15.4 H Plt Count 158 MPV 9.6 Immature Gran % (Auto) 0.8 H Neut % (Auto) 80.1 H Lymph % (Auto) 12.3 L [place] % (Auto) 6.0 Eos % (Auto) 0.4 Baso % (Auto) 0.4 Lymph # (Auto) 1.34 [place] # (Auto) 0.7 H Eos # (Auto) 0.0 Baso # (Auto) 0.0 Abs Immat Gran (auto) 0.09 H Absolute Neuts (auto) 8.7 H Absolute Nucleated RBC 0.000 Band Neutrophils % Not Reportable Nucleated RBC % 0.0 Platelet Estimate Adequate Hypochromasia 1+ Schistocytes None seen Syphilis IgG/IgM Ab Negative HIV 1&2 Ab/P24 Ag 4thGn Negative Blood Type A Positive Antibody Screen Negative Discharge Plan Discharge Attending physician on discharge: Vito Wick Discharging Clinician: Melissa Foote Patient Disposition: Home Activity: pelvic rest Diet: regular Patient Instructions: Antibiotic Form Patient Language: Luxembourgish Stand Alone Forms: General Discharge Information Follow-up/Referrals: Melissa Foote CNM [Certified Nurse Stunt Driver] - 4 Weeks Discharge Medications: Continued sertraline 50 mg tablet 50 mg PO DAILY Date of admission: 12/05/24 08:08 Primary Care Provider: UNKNOWN,DOCTOR Admitting Provider: Vito Wick Attending physician on admission: Vito Wick Condition: Stable
[2024-12-06] MEDS: DOCUSATE SODIUM 100 MG CAPSULE PO (08:08)
[2024-12-06] MEDS: MULTIVIT/MIN/PREN/FOL AC/IRON TABLET 1 TAB PO (08:08)
[2024-12-06] MEDS: POLYSACCHARIDE IRON COMPLEX 150 MG CAPSULE PO (08:08)
[2024-12-06] MEDS: ACETAMINOPHEN 325 MG TABLET 650 MG PO (08:08)
[2024-12-06 08:15] VITALS: BP 122/64; PULSE 75; RESP 18; TEMP 36.2; O2SAT 97
--- NOTE | 2024-12-06 10:00 | WPDANLDPN2 ---
Anes-Prog Note L&D Date/Time: 12/06/24 10:00 Neuro status: Neuro function grossly intact. Cardiovascular status: normal Respiratory status: normal Airway patency: baseline Mental status: baseline Post-Op hydration status: normal Vital Signs: Last Vital Signs Temp 36.2 C L 12/06/24 08:15 Pulse 75 12/06/24 08:15 Resp 18 12/06/24 08:15 BP 122/64 12/06/24 08:15 Pulse Ox 97 12/06/24 08:15 O2 Del Method Room Air 12/06/24 08:00 Pain score (VAS): 0 Post-procedural complaints: none Patient feedback: Patient satisfied with anesthetic care.
[2024-12-07 11:36] VITALS: PULSE 100; RESP 16; TEMP 36.5; O2SAT 99
== END 2024-12-06 12:10 | disposition home or self-care (01) | DRG 807 ==
LOC: ANHLDR 09:53 → ANHOB2 12:59
PROVIDERS: Advanced Practice Midwife; Admitting Provider Obstetrics & Gynecology; Visit Provider Obstetrics & Gynecology
DX: O62.3 Precipitate labor (principal); Z37.0 Single live birth; Z3A.39 39 weeks gestation of pregnancy
CPT/HCPCS: 36415; 85014; 85018; 85025; 86593; 86703; 86850; 86900; 86901; A9270; G0432; J2590; J2795; J7120